=== PATIENT | female | born 1975 | race Caucasian/White ===

== ENCOUNTER 2016-11-25 23:57 | Emergency (ER) | payer BC | END 2016-11-26 03:50 | disposition home or self-care (01) | LOC: ER 23:57 | DX: R07.9 Chest pain, unspecified (principal); R06.02 Shortness of breath; F32.9 Major depressive disorder, single episode, unspecified; I10 Essential (primary) hypertension; E07.9 Disorder of thyroid, unspecified; F17.210 Nicotine dependence, cigarettes, uncomplicated; Z98.51 Tubal ligation status; Z88.6 Allergy status to analgesic agent | CPT/HCPCS: 36415; 96361; 96365; 96366; 96375; J1885 ==